=== PATIENT | female | born 2000 | race Caucasian/White ===

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

== ENCOUNTER 2022-08-22 02:08 | Inpatient (IN) | payer MEDICAID, OTHER ==
--- NOTE | 2022-08-22 02:33 | ED ---
Psych HPI - General Chief Complaint: Psychiatric Symptoms Stated Complaint: Suicidal Time Seen by Provider: 08/22/22 02:22 Source: patient Mode of arrival: ambulatory - History of Present Illness Initial Comments: This patient is 22-year-old woman presenting to have evaluation for depression and suicidal ideation. Patient states she has long-standing depression and was feeling worse tonight, considering harming herself. Patient states she did not act on that. The patient has been drinking some alcohol but denies any other ingestion. MD Complaint: suicidal ideation, feels depressed -: week(s) Associated Psychiatric Symptoms: depression, suicidal ideation History of same: Yes Quality: getting worse Improves With: none Worsens With: none Associated Symptoms: denies other symptoms - Related Data Home Medications Medication Instructions Recorded Confirmed Omeprazole [PriLOSEC] 20 mg PO HS 08/22/22 08/22/22 Previous Rx's Medication Instructions Recorded ARIPiprazole [Abilify] 5 mg PO HS 15 Days tab 08/24/22 Escitalopram [Lexapro] 10 mg PO DAILY 15 Days tab 08/24/22 Melatonin 3 mg PO HS 15 Days tab 08/24/22 Sulfamethox-Tmp 800-160Mg [Bactrim 1 each PO BID 6 Days tab 08/24/22 DS 800-160 mg] busPIRone HCl [Buspar] 10 mg PO BID 15 Days tab 08/24/22 Allergies Allergy/AdvReac Type Severity Reaction Status Date / Time No Known Allergies Allergy Verified 08/22/22 02:16 Review of Systems ROS Statement: Those systems with pertinent positive or pertinent negative responses have been documented in the HPI. ROS Other: All systems not noted in ROS Statement are negative. Constitutional: Denies: fever Respiratory: Denies: cough, dyspnea Cardiovascular: Denies: chest pain, palpitations, syncope Gastrointestinal: Denies: abdominal pain, vomiting, diarrhea Genitourinary: Denies: dysuria, hematuria, abnormal menses Musculoskeletal: Denies: back pain Skin: Denies: rash Neurological: Denies: headache, weakness, numbness Past Medical History Past Medical History: No Reported History History of Any Multi-Drug Resistant Organisms: None Reported Past Surgical History: No Surgical Hx Reported Past Psychological History: Anxiety, Depression Smoking Status: Vaper Past Alcohol Use History: Occasional Past Drug Use History: Marijuana General Exam Limitations: no limitations General appearance: alert, anxious Head exam: Present: atraumatic, normocephalic Eye exam: Present: normal appearance. Absent: scleral icterus, conjunctival injection Neck exam: Present: normal inspection Respiratory exam: Present: normal lung sounds bilaterally. Absent: respiratory distress, wheezes, rales, rhonchi, stridor Cardiovascular Exam: Present: regular rate, normal rhythm, normal heart sounds. Absent: systolic murmur, diastolic murmur, rubs, gallop GI/Abdominal exam: Present: soft. Absent: distended, tenderness, guarding, rebound, rigid Extremities exam: Present: normal inspection, normal capillary refill Neurological exam: Present: alert, oriented X3 Psychiatric exam: Present: depressed, suicidal ideation. Absent: anxious, flat affect, manic, homicidal ideation Skin exam: Present: warm, dry, intact, normal color. Absent: rash Course Vital Signs 08/22/22 08/22/22 08/22/22 02:13 07:22 13:22 Temperature 98.2 F 98.2 F Pulse Rate 126 H 77 Respiratory 20 18 18 Rate Blood Pressure 129/83 117/73 O2 Sat by Pulse 98 99 Oximetry Medical Decision Making - Lab Data Result diagrams: 08/23/22 06:21 08/23/22 06:21 Lab Results 08/22/22 Range/Units 13:19 Coronavirus (PCR) Not Detected (Not Detectd) Disposition Clinical Impression: Mood disorder, Alcohol intoxication Disposition: ADMITTED IP TO THIS HOSP Condition: Stable Is patient prescribed a controlled substance at d/c from ED?: No
[2022-08-22] MEDS ORDERED: MAG HYDROX/AL HYDROX/SIMETH 30 ML CUP PO PRN (14:20)
[2022-08-22] MEDS ORDERED: ACETAMINOPHEN TAB 325 MG TAB PO PRN (14:20)
[2022-08-22] MEDS ORDERED: OLANZapine 10 MG VIAL IM PRN (14:29)
[2022-08-22] MEDS ORDERED: OLANZapine 5 MG TAB PO PRN (14:31)
[2022-08-22] MEDS ORDERED: hydrOXYzine HCL 50 MG/ML 1 ML VIAL IM PRN (14:32)
[2022-08-22] MEDS: hydrOXYzine pamoate 25 MG CAP PO PRN (17:24)
[2022-08-22] MEDS: busPIRone HCl 5 MG TAB PO SCH (20:21)
[2022-08-22] MEDS: PANTOPRAZOLE 40 MG TABLET PO SCH (20:21)
[2022-08-22] MEDS: ARIPiprazole 5 MG TAB PO SCH (20:21)
[2022-08-22] MEDS: chlordiazePOXIDE 25 MG CAP PO SCH (20:29)
[2022-08-23 06:40] VITALS: RESP 16; TEMP 98.4
[2022-08-23 07:17] LABS: Basophils # (A) 0.1 k/uL (0-0.2); Basophils % (A) 1 %; Eosinophils % (A) 0 %; HCT 44.5 % (34.0-46.0); HGB 15.1 gm/dL (11.4-16.0); Lymphocytes # (A) 4.8 k/uL (1.0-4.8); Lymphocytes % (A) 51 %; MCH 30.3 pg (25.0-35.0); MCV 89.3 fL (80.0-100.0); Mean Platelet Volume 7.8; Monocytes # (A) 0.6 k/uL (0-1.0); Monocytes % (A) 6 %; Neutrophils # (A) 3.7 k/uL (1.3-7.7); Neutrophils % (A) 40 %; Platelet Count 322 k/uL (150-450); RBC 4.98 m/uL (3.80-5.40); RDW 12.8 % (11.5-15.5); WBC 9.4 k/uL (4.0-11.0)
[2022-08-23 07:20] LABS: ALT 15 U/L (4-34); AST 23 U/L (14-36); African American GFR (CKD) >90 (>60 ml/min/1.73 sqM); Albumin 4.8 g/dL (3.5-5.0); Alkaline Phosphatase 53 U/L (38-126); Anion Gap 13 mmol/L; Blood Urea Nitrogen 12 mg/dL (7-17); Calcium 9.6 mg/dL (8.4-10.2); Carbon Dioxide 26 mmol/L (22-30); Chloride 101 mmol/L (98-107); Glucose 90 mg/dL (74-99); Non-African American GFR(CKD) >90 (>60 ml/min/1.73 sqM); Potassium 4.2 mmol/L (3.5-5.1); Sodium 140 mmol/L (137-145); Total Bilirubin 0.8 mg/dL (0.2-1.3)
[2022-08-23] MEDS: chlordiazePOXIDE 25 MG CAP PO SCH (08:09)
[2022-08-23] MEDS: NICOTINE 14MG/24HR PATCH TRANSDERM SCH (08:09)
[2022-08-23] MEDS: busPIRone HCl 5 MG TAB PO SCH (08:10)
[2022-08-23] MEDS: ESCITALOPRAM 10 MG TAB PO SCH (08:10)
[2022-08-23] MEDS ORDERED: LIDOCAINE 2% GEL 30 ML TUBE TOPICAL ONE (10:22)
[2022-08-23 11:08] LABS: Chol/HDL Ratio 3.32 Ratio; LDL Cholesterol,Calculated 98.7 mg/dL (0.0-131.0)
[2022-08-23 11:28] LABS: Appearance,Urine Cloudy (Clear); Bacteria,Urine Rare /hpf; Bilirubin,Urine Negative (Negative); Blood,Urine Small (Negative); Color,Urine Yellow; Glucose,Urine (UA) Negative (Negative); Hyaline Casts,Urine 4 /lpf (0-2); Ketones,Urine Negative (Negative); Leukocyte Esterase,Urine Trace (Negative); Mucus,Urine Many /hpf; Nitrite,Urine Negative (Negative); Protein,Urine 1+ (Negative); RBC,Urine 1 /hpf (0-5); Specific Gravity,Urine 1.035 (1.001-1.035); Squamous Epithelial Cell,Urine 10 /hpf (0-4); Urobilinogen,Urine <2.0 mg/dL (<2.0); WBC,Urine 4 /hpf (0-5)
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
[2022-08-23] MEDS ORDERED: LIDOCAINE 2% URO-JET JELLY 5 ML KIT MISCELLANE ONE (13:15)
[2022-08-23] MEDS: hydrOXYzine pamoate 25 MG CAP PO PRN ×2 (13:49→20:05)
--- NOTE | 2022-08-23 17:47 | P.HPIM ---
History of Present Illness H&P Date: 08/23/22 This is a pleasant 22-year-old female who was admitted to inpatient psych for suicidal thought ideation. Patient denies past medical history. Patient is concerned about her lacerations on her right upper thigh. Patient inflicted self-harm with a razor about a week ago. Today the lacerations have become more painful and inflamed. Patient denies fevers or chills. Patient further denies chest pain, shortness breath, nausea, vomiting, constipation, diarrhea, or abdominal pain. Review of Systems A 14 point review of systems was assessed patient was only positive for those discussed in HPI Past Medical History Past Medical History: No Reported History History of Any Multi-Drug Resistant Organisms: None Reported Past Surgical History: No Surgical Hx Reported Smoking Status: Vaper Medications and Allergies Home Medications Medication Instructions Recorded Confirmed Type ARIPiprazole [Abilify] 5 mg PO HS 08/22/22 08/22/22 History DULoxetine HCL [Cymbalta] 20 mg PO DAILY 08/22/22 08/22/22 History Escitalopram Oxalate [Lexapro] 10 mg PO DAILY 08/22/22 08/22/22 History Omeprazole [PriLOSEC] 20 mg PO HS 08/22/22 08/22/22 History busPIRone HCl [Buspar] 5 mg PO BID 08/22/22 08/22/22 History Allergies Allergy/AdvReac Type Severity Reaction Status Date / Time No Known Allergies Allergy Verified 08/22/22 02:16 Physical Exam Osteopathic Statement: *. No significant issues noted on an osteopathic str uctural exam other than those noted in the History and Physical/Consult. Vitals: Vital Signs Temp Pulse Resp BP 08/23/22 06:20 98.4 F 86 16 134/83 General: [non toxic], [no distress], [appears at stated age] Derm: [warm], [dry] multiple linear lacerations right upper thigh with increased erythema and edema negative for drainage Head: [atraumatic], [normocephalic], [symmetric] Eyes: [EOMI], [no lid lag], [anicteric sclera] Mouth: [no lip lesion], [mucus membranes moist] Cardiovascular: [S1S2 reg], [no murmur], [positive posterior tibial pulse bilateral], Lungs: [CTA bilateral], [no rhonchi, no rales] , [no accessory muscle use] Abdominal: [soft], [ nontender to palpation], [no guarding], [no appreciable organomegaly] Ext: [no gross muscle atrophy], [no edema], [no contractures] Neuro: [ CN II-XI grossly intact], [no focal neuro deficits] Psych: [Alert], [oriented], [appropriate affect] Results CBC & Chem 7: 08/23/22 06:21 08/23/22 06:21 Labs: Abnormal Lab Results - Last 24 Hours (Table) 08/23/22 Range/Units 10:49 Urine Appearance Cloudy H (Clear) Urine Protein 1+ H (Negative) Urine Blood Small H (Negative) Ur Leukocyte Esterase Trace H (Negative) Ur Squamous Epith Cells 10 H (0-4) /hpf Urine Bacteria Rare H (None) /hpf Hyaline Casts 4 H (0-2) /lpf Urine Mucus Many H (None) /hpf Thrombosis Risk Factor Assmnt - DVT/VTE Prophylaxis DVT/VTE Prophylaxis: Low risk, early ambulation encouraged Assessment and Plan Assessment: 1. Multiple lacerations due to self-harm right upper thigh concern for cellulitis Bactrim DS twice a day 7 days Tylenol when necessary pain 2. Suicidal thought ideation Followed by psychiatry medications per psych Greater than 35 minutes spent coordinating care, counseling, and documenting Time with Patient: Greater than 30
--- NOTE | 2022-08-23 17:50 | P.CONS ---
History of Present Illness - Reason for Consult Consult date: 08/23/22 lacerations - Chief Complaint lacerations on thigh - History of Present Illness This is a pleasant 22-year-old female who was admitted to inpatient psych for suicidal thought ideation. Patient denies past medical history. Patient is concerned about her lacerations on her right upper thigh. Patient inflicted self-harm with a razor about a week ago. Today the lacerations have become more painful and inflamed. Patient denies fevers or chills. Patient further denies chest pain, shortness breath, nausea, vomiting, constipation, diarrhea, or abdominal pain. Review of Systems A 14 point review of systems was assessed patient was only positive for those discussed in HPI Past Medical History Past Medical History: No Reported History History of Any Multi-Drug Resistant Organisms: None Reported Past Surgical History: No Surgical Hx Reported Smoking Status: Vaper Medications and Allergies Home Medications Medication Instructions Recorded Confirmed Type ARIPiprazole [Abilify] 5 mg PO HS 08/22/22 08/22/22 History DULoxetine HCL [Cymbalta] 20 mg PO DAILY 08/22/22 08/22/22 History Escitalopram Oxalate [Lexapro] 10 mg PO DAILY 08/22/22 08/22/22 History Omeprazole [PriLOSEC] 20 mg PO HS 08/22/22 08/22/22 History busPIRone HCl [Buspar] 5 mg PO BID 08/22/22 08/22/22 History Allergies Allergy/AdvReac Type Severity Reaction Status Date / Time No Known Allergies Allergy Verified 08/22/22 02:16 Physical Exam Osteopathic Statement: *. No significant issues noted on an osteopathic structural exam other than those noted in the History and Physical/Consult. Vitals: Vital Signs Temp Pulse Resp BP 08/23/22 06:20 98.4 F 86 16 134/83 General: [non toxic], [no distress], [appears at stated age] Derm: [warm], [dry] multiple linear lacerations right upper thigh with increased erythema and edema negative for drainage Head: [atraumatic], [normocephalic], [symmetric] Eyes: [EOMI], [no lid lag], [anicteric sclera] Mouth: [no lip lesion], [mucus membranes moist] Cardiovascular: [S1S2 reg], [no murmur], [positive posterior tibial pulse bilat eral], Lungs: [CTA bilateral], [no rhonchi, no rales] , [no accessory muscle use] Abdominal: [soft], [ nontender to palpation], [no guarding], [no appreciable organomegaly] Ext: [no gross muscle atrophy], [no edema], [no contractures] Neuro: [ CN II-XI grossly intact], [no focal neuro deficits] Psych: [Alert], [oriented], [appropriate affect] Results CBC & Chem 7: 08/23/22 06:21 08/23/22 06:21 Labs: Abnormal Lab Results - Last 24 Hours (Table) 08/23/22 Range/Units 10:49 Urine Appearance Cloudy H (Clear) Urine Protein 1+ H (Negative) Urine Blood Small H (Negative) Ur Leukocyte Esterase Trace H (Negative) Ur Squamous Epith Cells 10 H (0-4) /hpf Urine Bacteria Rare H (None) /hpf Hyaline Casts 4 H (0-2) /lpf Urine Mucus Many H (None) /hpf Assessment and Plan Assessment: 1. Multiple lacerations due to self-harm right upper thigh concern for cellulitis Bactrim DS twice a day 7 days Tylenol when necessary pain 2. Suicidal thought ideation Followed by psychiatry medications per psych Greater than 35 minutes spent coordinating care, counseling, and documenting Thank you for the consult he have any questions please do not hesitate to contact [facility]
[2022-08-23 19:35] LABS: Urine Alcohol Negative (Negative); Urine Barbiturate Negative (Negative); Urine Cocaine Negative (Negative); Urine Methadone Negative (Negative); Urine Opiates Negative (Negative); Urine Phencyclidine Negative (Negative)
[2022-08-23] MEDS: busPIRone HCl 10 MG TAB PO SCH (20:05)
[2022-08-23] MEDS: SULFAMETHOX-TMP 800-160MG 1 EACH TAB PO SCH (20:05)
[2022-08-23] MEDS: ARIPiprazole 5 MG TAB PO SCH (20:05)
[2022-08-23] MEDS: PANTOPRAZOLE 40 MG TABLET PO SCH (20:05)
[2022-08-23] MEDS: NICOTINE GUM (POLACRILEX) 2 MG GUM BUCCAL PRN (22:26)
[2022-08-24] MEDS ORDERED: MELATONIN 3 MG TABLET PO SCH (00:45)
[2022-08-24] MEDS: NICOTINE GUM (POLACRILEX) 2 MG GUM BUCCAL PRN ×2 (02:35→08:53)
[2022-08-24] MEDS: hydrOXYzine pamoate 25 MG CAP PO PRN ×2 (02:36→11:03)
[2022-08-24 07:02] VITALS: BP 133/86; PULSE 91
[2022-08-24] MEDS: NICOTINE 14MG/24HR PATCH TRANSDERM SCH (08:46)
[2022-08-24] MEDS: ESCITALOPRAM 10 MG TAB PO SCH (08:47)
[2022-08-24] MEDS: SULFAMETHOX-TMP 800-160MG 1 EACH TAB PO SCH (08:47)
[2022-08-24] MEDS: busPIRone HCl 10 MG TAB PO SCH (08:47)
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
== END 2022-08-24 13:14 | disposition home or self-care (01) | DRG 885 ==
LOC: EC 02:08 → 3MHU 14:15
PROVIDERS: ADMIT Psychiatry & Neurology Psychiatry; ATTEND Psychiatry & Neurology Psychiatry
DX: F33.2 Major depressive disorder, recurrent severe without psychotic features (principal); R45.851 Suicidal ideations; F60.3 Borderline personality disorder; F43.10 Post-traumatic stress disorder, unspecified; F10.129 Alcohol abuse with intoxication, unspecified; F12.90 Cannabis use, unspecified, uncomplicated; F60.89 Other specific personality disorders; S71.111A Laceration without foreign body, right thigh, initial encounter; Z62.810 Personal history of physical and sexual abuse in childhood; Z79.899 Other long term (current) drug therapy; Z91.52 Personal history of nonsuicidal self-harm; Z20.822 Contact with and (suspected) exposure to COVID-19
CPT/HCPCS: 80053; 80061; 80306; 81001; 81025; 82075; 83036; 84443; 85025; 87635; 99285

== ENCOUNTER 2022-09-01 11:31 | Emergency (ER) | payer OTHER ==
[2022-09-01 11:44] VITALS: TEMP 98.4
--- NOTE | 2022-09-01 12:24 | ED ---
General Adult HPI - General Chief complaint: Psychiatric Symptoms Stated complaint: Mental Health Time Seen by Provider: 09/01/22 11:52 Source: patient Mode of arrival: ambulatory Limitations: no limitations - History of Present Illness Initial comments: Dictation was produced using [employer] dictation software. please excuse any grammatical, word or spelling errors. Chief Complaint: 22-year-old female presents emergency department for 1 week of suicidal ideation History of Present Illness: Patient is a 22-year-old female she presents to the [facility] with suicidal ideation. Patient states she's been feeling suicidal for the last 7 days. Patient is a history of psychiatric disease. She takes multiple psychiatric medications. Patient denies any homicidal ideation. No visual auditory hallucinations. Denies any medical complaints. The ROS documented in this emergency department record has been reviewed and confirmed by me. Those systems with pertinent positive or negative responses have been documented in the HPI. All other systems are other negative and/or noncontributory. PHYSICAL EXAM: General Impression: Alert and oriented x3, not in acute distress HEENT: Normocephalic atraumatic, extra-ocular movements intact, pupils equal and reactive to light bilaterally, mucous membranes moist. Cardiovascular: Heart regular rate and rhythm Chest: Able to complete full sentences, no retractions, no tachypnea Musculoskeletal: no peripheral edema Motor: no focal deficits noted Neurological: CN II-XII grossly intact, no focal motor or sensory deficits noted Skin: Intact with no visualized rashes Psych: Normal affect and mood ED course: 22-year-old female presents to the emergency Department for suicidal ideation. As upon arrival are within acceptable limits. Physical examination is benign. Cleared for EPS evaluation. Patient evaluated by emergency psych services recommended discharge with outpatient follow-up and referrals. - Related Data Home Medications Medication Instructions Recorded Confirmed Omeprazole [PriLOSEC] 20 mg PO HS 08/22/22 08/22/22 Previous Rx's Medication Instructions Recorded ARIPiprazole [Abilify] 5 mg PO HS 15 Days tab 08/24/22 Escitalopram [Lexapro] 10 mg PO DAILY 15 Days tab 08/24/22 Melatonin 3 mg PO HS 15 Days tab 08/24/22 Sulfamethox-Tmp 800-160Mg [Bactrim 1 each PO BID 6 Days tab 08/24/22 DS 800-160 mg] busPIRone HCl [Buspar] 10 mg PO BID 15 Days tab 08/24/22 Allergies Allergy/AdvReac Type Severity Reaction Status Date / Time No Known Allergies Allergy Verified 09/01/22 11:44 Review of Systems ROS Statement: Those systems with pertinent positive or pertinent negative responses have been documented in the HPI. ROS Other: All systems not noted in ROS Statement are negative. Past Medical History Past Medical History: No Reported History History of Any Multi-Drug Resistant Organisms: None Reported Past Surgical History: No Surgical Hx Reported Past Psychological History: Anxiety, Depression Smoking Status: Vaper Past Alcohol Use History: Occasional Past Drug Use History: Marijuana General Exam Limitations: no limitations Course Vital Signs 09/01/22 11:42 Temperature 98.4 F Pulse Rate 91 Respiratory 16 Rate Blood Pressure 122/82 O2 Sat by Pulse 100 Oximetry Disposition Clinical Impression: Suicidal ideation Disposition: HOME SELF-CARE Condition: Good Instructions (If sedation given, give patient instructions): Help Prevent Suicide (ED) Is patient prescribed a controlled substance at d/c from ED?: No Referrals: Bladimir Min MD [Primary Care Provider] - 1-2 days Time of Disposition: 15:06
[2022-09-01 15:55] VITALS: BP 124/81; PULSE 92; RESP 18
== END 2022-09-01 15:31 | disposition home or self-care (01) ==
LOC: SUPCPDRO 11:31 → EC 11:31
DX: R45.851 Suicidal ideations (principal); F32.A Depression, unspecified; F41.9 Anxiety disorder, unspecified; F17.290 Nicotine dependence, other tobacco product, uncomplicated; Z79.899 Other long term (current) drug therapy; Z79.811 Long term (current) use of aromatase inhibitors; Z79.83 Long term (current) use of bisphosphonates
CPT/HCPCS: 82075; 99284

== ENCOUNTER → 2023-07-24 | Outpatient (CLI) | payer SELFPAY ==
[2023-07-24 11:10] LABS: Basophils # (A) 0.06 X 10*3/uL (0.00-0.10); Basophils % (A) 0.9 %; Eosinophils # (A) 0.02 X 10*3/uL (0.04-0.35); Eosinophils % (A) 0.3 %; HCT 44.6 % (37.2-46.3); HGB 14.8 d/dL (12.0-15.0); Lymphocytes # (A) 2.76 X 10*3/uL (0.90-5.00); Lymphocytes % (A) 40.2 %; MCH 30.5 pg (27.0-32.0); MCHC 33.2 d/dL (32.0-37.0); Mean Platelet Volume 10.2 FL (9.5-12.2); Monocytes # (A) 0.42 X 10*3/uL (0.20-1.00); Monocytes % (A) 6.1 %; NRBC Per 100 WBC 0 X 10*3/uL (0.00-0.01); Neutrophils # (A) 3.56 X 10*3/uL (1.80-7.70); Neutrophils % (A) 51.9 %; Platelet Count 292 X 10*3/uL (140-440); RBC 4.85 X 10*6/uL (4.10-5.20); RDW 12.3 % (11.5-14.5); WBC 6.86 X 10*3/uL (4.50-10.00)
[2023-07-24 11:30] LABS: ALT 14 U/L (8-44); AST 18 U/L (13-35); Albumin/Globulin Ratio 2.08 Ratio (1.60-3.17); Alkaline Phosphatase 52 U/L (41-126); BUN/Creat Ratio 13.75 Ratio (12.00-20.00); Calcium 9.9 mg/dL (8.7-10.3); Carbon Dioxide 25.9 mmol/L (21.6-31.8); Chloride 105 mmol/L (96-109); Globulin 2.4 d/dL (1.6-3.3); Glucose 64 mg/dL (70-110); HCG,Quantitative Serum <3.0 mIU/mL (0.0-6.0); Potassium 4.2 mmol/L (3.5-5.5); Sodium 143 mmol/L (135-145); Total Bilirubin 0.3 mg/dL (0.3-1.2); Total Protein 7.4 d/dL (6.2-8.2)
== END | disposition home or self-care (01) ==
LOC: LABWHC1 07:34
PROVIDERS: ATTEND Family Medicine
DX: N93.9 Abnormal uterine and vaginal bleeding, unspecified (principal)
CPT/HCPCS: 36415; 80053; 84702; 85025

== ENCOUNTER 2025-04-20 15:47 | Emergency (ER) | payer SELFPAY ==
--- NOTE | 2025-04-20 16:36 | ED ---
General Adult HPI - General Chief complaint: Nausea/Vomiting/Diarrhea Stated complaint: near syncope, vomiting Time Seen by Provider: 04/20/25 16:14 Source: patient, RN notes reviewed Mode of arrival: ambulatory Limitations: no limitations - History of Present Illness Initial comments: 24-year-old female presents to the emergency department for nausea and vomiting. Patient reports that symptoms started on Sunday. She notes that since then she has been very nauseous. She went to [facility] around 430 this morning and was given IV fluids and Zofran. She notes that she did have some relief temporarily. She was written a prescription for p.o. Zofran but she did not pick this up. Patient also endorses diarrhea. Denies abdominal pain. Denies any fever. Denies any urinary symptoms. - Related Data Home Medications Medication Instructions Recorded Confirmed Omeprazole [PriLOSEC] 20 mg PO HS 08/22/22 08/22/22 Previous Rx's Medication Instructions Recorded ARIPiprazole [Abilify] 5 mg PO HS 15 Days tab 08/24/22 Escitalopram [Lexapro] 10 mg PO DAILY 15 Days tab 08/24/22 Melatonin 3 mg PO HS 15 Days tab 08/24/22 Sulfamethox-Tmp 800-160Mg [Bactrim 1 each PO BID 6 Days tab 08/24/22 DS 800-160 mg] busPIRone HCl [Buspar] 10 mg PO BID 15 Days tab 08/24/22 Allergies Allergy/AdvReac Type Severity Reaction Status Date / Time No Known Allergies Allergy Verified 04/20/25 15:57 Review of Systems ROS Statement: Those systems with pertinent positive or pertinent negative responses have been documented in the HPI. ROS Other: All systems not noted in ROS Statement are negative. Past Medical History Past Medical History: No Reported History Additional Past Medical History / Comment(s): GERD as child History of Any Multi-Drug Resistant Organisms: None Reported Past Surgical History: No Surgical Hx Reported Past Psychological History: Anxiety, Depression Smoking Status: Vaper Past Alcohol Use History: Occasional Past Drug Use History: Marijuana General Exam Limitations: no limitations General appearance: alert, in no apparent distress Head exam: Present: atraumatic, normocephalic, normal inspection Eye exam: Present: normal appearance, PERRL, EOMI. Absent: scleral icterus, conjunctival injection, periorbital swelling Respiratory exam: Present: normal lung sounds bilaterally. Absent: respiratory distress, wheezes, rales, rhonchi, stridor Cardiovascular Exam: Present: regular rate, normal rhythm, normal heart sounds. Absent: systolic murmur, diastolic murmur, rubs, gallop, clicks GI/Abdominal exam: Present: soft, normal bowel sounds. Absent: distended, tenderness, guarding, rebound, rigid Extremities exam: Present: normal inspection, full ROM, normal capillary refill. Absent: tenderness, pedal edema, joint swelling, calf tenderness Back exam: Present: normal inspection Neurological exam: Present: alert, oriented X3 Psychiatric exam: Present: normal affect, normal mood Skin exam: Present: warm, dry, intact, normal color. Absent: rash Course Vital Signs 04/20/25 15:53 Temperature 97.9 F Pulse Rate 71 Respiratory 15 Rate Blood Pressure 124/73 O2 Sat by Pulse 99 Oximetry Medical Decision Making - Medical Decision Making Was pt. sent in by a medical professional or institution (JASON Zhao, [employer], urgent care, hospital, or detention...) When possible be specific @ -[No] Did you speak to anyone other than the patient for history (EMS, parent, family, police, friend...)? What history was obtained from this source @ -[No] Did you review nursing and triage notes (agree or disagree)? Why? @ -[I reviewed and agree with nursing and triage notes] Were old charts reviewed (outside hosp., previous admission, EMS record, old EKG, old radiological studies, urgent care reports/EKG's, detention records)? Report findings @ -[No old charts were reviewed] Differential Diagnosis (chest pain, altered mental status, abdominal pain women, abdominal pain men, vaginal bleeding, weakness, fever, dyspnea, syncope, headache, dizziness, GI bleed, back pain, seizure, CVA, palpatations, mental health, musculoskeletal)? @ -[not applicable] EKG interpreted by me (3pts min.). @ -[As above] X-rays interpreted by me (1pt min.). @ -[None done] CT interpreted by me (1pt min.). @ -[None done] U/S interpreted by me (1pt. min.). @ -[None done] What testing was considered but not performed or refused? (CT, X-rays, U/S, labs)? Why? @ -[None] What meds were considered but not given or refused? Why? @ -[None] Did you discuss the management of the patient with other professionals (professionals i.e. , PA, [employer], lab, RT, psych nurse, rn social work, environmental quality analyst, teacher, vessel traffic officer, ed case manager)? Give summary @ -[No] Was smoking cessation discussed for >3mins.? @ -[No] Was critical care preformed (if so, how long)? @ -[No] Were there social determinants of health that impacted care today? How? (Homelessness, low income, unemployed, alcoholism, drug addiction, transportation, low edu. Level, literacy, decrease access to med. care, custodial, rehab)? @ -[No] Was there de-escalation of care discussed even if they declined (Discuss DNR or withdrawal of care, Hospice)? DNR status @ -[No] What co-morbidities impacted this encounter? (DM, HTN, Smoking, COPD, CAD, Cancer, CVA, ARF, Chemo, Hep., AIDS, mental health diagnosis, sleep apnea, morbid obesity)? @ -[None] Was patient admitted / discharged? Hospital course, mention meds given and route, prescriptions, significant lab abnormalities, going to OR and other pertinent info. @ -[hospital course] Undiagnosed new problem with uncertain prognosis? @ -[No] Drug Therapy requiring intensive monitoring for toxicity (Heparin, Nitro, Insulin, Cardizem)? @ -[No] Were any procedures done? @ -[No] Diagnosis/symptom? @ -[default] Acute, or Chronic, or Acute on Chronic? @ -[default] Uncomplicated (without systemic symptoms) or Complicated (systemic symptoms)? @ -[default] Side effects of treatment? @ -[No] Exacerbation, Progression, or Severe Exacerbation? @ -[No] Poses a threat to life or bodily function? How? (Chest pain, [place], [place], pneumonia, PE, COPD, DKA, ARF, appy, cholecystitis, CVA, Diverticulitis, Homicidal, Suicidal, threat to staff... and all critical care pts) @ -[No] - Lab Data Result diagrams: 04/20/25 16:42 04/20/25 16:42 Lab Results 04/20/25 04/20/25 04/20/25 Range/Units 16:42 16:42 16:42 WBC 9.26 (4.50-10.00) 10*3/uL RBC 4.81 (4.10-5.20) 10*6/uL Hgb 15.0 (12.0-15.0) g/dL Hct 42.4 (37.2-46.3) % MCV 88.1 (80.0-97.0) fL MCH 31.2 (27.0-32.0) pg MCHC 35.4 (32.0-37.0) g/dL Plt Count 381 (140-440) 10*3/uL MPV 9.8 (9.5-12.2) fL Immature Gran % (Auto) 0.4 % Neutrophils % 68.7 % Lymphocytes % 24.2 % Monocytes % 6.0 % Eosinophils % 0.1 % Basophils % 0.6 % Immature Gran # 0.04 (0.00-0.04) 10*3/uL Neutrophils # 6.35 (1.80-7.70) 10*3/uL Lymphocytes # 2.24 (0.90-5.00) 10*3/uL Monocytes # 0.56 (0.20-1.00) 10*3/uL Eosinophils # 0.01 L (0.04-0.35) 10*3/uL Basophils # 0.06 (0.00-0.10) 10*3/uL Sodium (137-145) mmol/L Potassium (3.5-5.1) mmol/L Chloride (98-107) mmol/L Carbon Dioxide (22-30) mmol/L Anion Gap mmol/L BUN (7-17) mg/dL Creatinine (0.52-1.04) mg/dL Est GFR (CKD-EPI)AfAm (>60 ml/min/1.73 sqM) Est GFR (CKD-EPI)NonAf (>60 ml/min/1.73 sqM) Glucose (74-99) mg/dL Calcium (8.4-10.2) mg/dL Total Bilirubin (0.2-1.3) mg/dL AST (14-36) U/L ALT (4-34) U/L Alkaline Phosphatase (38-126) U/L Total Protein (6.3-8.2) g/dL Albumin (3.5-5.0) g/dL Amylase (30-110) U/L Lipase (23-300) U/L Urine Color Yellow Urine Appearance Cloudy H (Clear) Urine pH 6.5 (5.0-8.0) Ur Specific [place] 1.038 H (1.001-1.035) Urine Protein 1+ H (Negative) Urine Glucose (UA) Negative (Negative) Urine Ketones 4+ H (Negative) Urine Blood Moderate H (Negative) Urine Nitrite Negative (Negative) Urine Bilirubin 1+ H (Negative) Urine Urobilinogen 3.0 (<2.0) mg/dL Ur Leukocyte Esterase Negative (Negative) Urine RBC 19 H (0-5) /hpf Urine WBC 4 (0-5) /hpf Ur Squamous Epith Cells 6 H (0-4) /hpf Urine Mucus Many H (None) /hpf Urine HCG, Qual Not Detected (Not Detectd) 04/20/25 Range/Units 16:42 WBC (4.50-10.00) 10*3/uL RBC (4.10-5.20) 10*6/uL Hgb (12.0-15.0) g/dL Hct (37.2-46.3) % MCV (80.0-97.0) fL MCH (27.0-32.0) pg MCHC (32.0-37.0) g/dL Plt Count (140-440) 10*3/uL MPV (9.5-12.2) fL Immature Gran % (Auto) % Neutrophils % % Lymphocytes % % Monocytes % % Eosinophils % % Basophils % % Immature Gran # (0.00-0.04) 10*3/uL Neutrophils # (1.80-7.70) 10*3/uL Lymphocytes # (0.90-5.00) 10*3/uL Monocytes # (0.20-1.00) 10*3/uL Eosinophils # (0.04-0.35) 10*3/uL Basophils # (0.00-0.10) 10*3/uL Sodium 140 (137-145) mmol/L Potassium 3.5 (3.5-5.1) mmol/L Chloride 105 (98-107) mmol/L Carbon Dioxide 22 (22-30) mmol/L Anion Gap 13 mmol/L BUN 11 (7-17) mg/dL Creatinine 0.72 (0.52-1.04) mg/dL Est GFR (CKD-EPI)AfAm >90 (>60 ml/min/1.73 sqM) Est GFR (CKD-EPI)NonAf >90 (>60 ml/min/1.73 sqM) Glucose 123 H (74-99) mg/dL Calcium 9.8 (8.4-10.2) mg/dL Total Bilirubin 0.7 (0.2-1.3) mg/dL AST 22 (14-36) U/L ALT 22 (4-34) U/L Alkaline Phosphatase 64 (38-126) U/L Total Protein 8.0 (6.3-8.2) g/dL Albumin 5.0 (3.5-5.0) g/dL Amylase 52 (30-110) U/L Lipase 70 (23-300) U/L Urine Color Urine Appearance (Clear) Urine pH (5.0-8.0) Ur Specific [place] (1.001-1.035) Urine Protein (Negative) Urine Glucose (UA) (Negative) Urine Ketones (Negative) Urine Blood (Negative) Urine Nitrite (Negative) Urine Bilirubin (Negative) Urine Urobilinogen (<2.0) mg/dL Ur Leukocyte Esterase (Negative) Urine RBC (0-5) /hpf Urine WBC (0-5) /hpf Ur Squamous Epith Cells (0-4) /hpf Urine Mucus (None) /hpf Urine HCG, Qual (Not Detectd) Disposition Clinical Impression: Dehydration, Nausea and vomiting Disposition: HOME SELF-CARE Condition: Stable Instructions (If sedation given, give patient instructions): Acute Nausea and Vomiting (ED) Additional Instructions: Increase your fluid hydration. Utilize the Zofran as needed for nausea. Please follow-up with your doctor. Return to the emergency department for new or worsening symptoms. Is patient prescribed a controlled substance at d/c from ED?: No Referrals: Gustavo Ardon MD [Primary Care Provider] - 1-2 days
[2025-04-20] MEDS: SODIUM CHLORIDE 0.9% 1,000 ML IV ONE ×2 (16:46→17:51)
[2025-04-20] MEDS: PROCHLORPERAZINE INJ 10 MG/2 ML VIAL IVP STA (16:47)
[2025-04-20] MEDS: diphenhydrAMINE 50 MG/ML 1 ML VIAL IVP STA (16:47)
[2025-04-20 16:56] LABS: Basophils # (A) 0.06 10*3/uL (0.00-0.10); Basophils % (A) 0.6 %; Eosinophils # (A) 0.01 10*3/uL (0.04-0.35); Eosinophils % (A) 0.1 %; HCT 42.4 % (37.2-46.3); Lymphocytes # (A) 2.24 10*3/uL (0.90-5.00); Lymphocytes % (A) 24.2 %; MCH 31.2 pg (27.0-32.0); MCHC 35.4 g/dL (32.0-37.0); MCV 88.1 fL (80.0-97.0); Mean Platelet Volume 9.8 fL (9.5-12.2); Monocytes # (A) 0.56 10*3/uL (0.20-1.00); Neutrophils # (A) 6.35 10*3/uL (1.80-7.70); Neutrophils % (A) 68.7 %; Platelet Count 381 10*3/uL (140-440); RBC 4.81 10*6/uL (4.10-5.20); RDW 12.7 % (11.5-14.5); WBC 9.26 10*3/uL (4.50-10.00)
[2025-04-20 17:11] LABS: Appearance,Urine Cloudy (Clear); Bilirubin,Urine 1+ (Negative); Blood,Urine Moderate (Negative); Color,Urine Yellow; Glucose,Urine (UA) Negative (Negative); Ketones,Urine 4+ (Negative); Leukocyte Esterase,Urine Negative (Negative); Mucus,Urine Many /hpf; Nitrite,Urine Negative (Negative); PH, Urine 6.5 (5.0-8.0); Protein,Urine 1+ (Negative); RBC,Urine 19 /hpf (0-5); Specific Gravity,Urine 1.038 (1.001-1.035); Squamous Epithelial Cell,Urine 6 /hpf (0-4); WBC,Urine 4 /hpf (0-5)
[2025-04-20 17:12] LABS: ALT 22 U/L (4-34); AST 22 U/L (14-36); African American GFR (CKD) >90 (>60 ml/min/1.73 sqM); Alkaline Phosphatase 64 U/L (38-126); Amylase 52 U/L (30-110); Anion Gap 13 mmol/L; Blood Urea Nitrogen 11 mg/dL (7-17); Calcium 9.8 mg/dL (8.4-10.2); Carbon Dioxide 22 mmol/L (22-30); Chloride 105 mmol/L (98-107); Glucose 123 mg/dL (74-99); Lipase 70 U/L (23-300); Non-African American GFR(CKD) >90 (>60 ml/min/1.73 sqM); Potassium 3.5 mmol/L (3.5-5.1); Sodium 140 mmol/L (137-145); Total Bilirubin 0.7 mg/dL (0.2-1.3)
[2025-04-20] MEDS: ONDANSETRON 4 MG/2 ML VIAL IVP STA (17:51)
[2025-04-20] MEDS: ONDANSETRON 4 MG ODT STARTER PACK 2 TAB BTL PO STA (18:53)
[2025-04-20 19:02] VITALS: BP 138/87; PULSE 81; RESP 18; TEMP 98.3
== END 2025-04-20 19:03 | disposition home or self-care (01) ==
LOC: EC 15:47
DX: E86.0 Dehydration (principal); R11.2 Nausea with vomiting, unspecified; F17.290 Nicotine dependence, other tobacco product, uncomplicated
CPT/HCPCS: 36415; 80053; 82150; 83690; 85025; 81001; 81025; 99284; 96374; 96375 ×2; 96361 ×2; J1200; J0780; J2405; S0119

== ENCOUNTER 2025-04-21 16:04 | Emergency (ER) | payer SELFPAY ==
[2025-04-21 16:10] VITALS: RESP 16
--- NOTE | 2025-04-21 16:53 | ED ---
Nausea/Vomiting/Diarrhea HPI - General Chief complaint: Nausea/Vomiting/Diarrhea Stated complaint: Recheck-Nausea Time Seen by Provider: 04/21/25 16:53 Source: patient, RN notes reviewed Mode of arrival: ambulatory Limitations: no limitations - History of Present Illness Initial comments: 24-year-old female presenting for nausea/vomiting/diarrhea x 3 days. Reports symptoms started Sunday and describes more than 10 episodes of vomiting at symptom onset. States she has not vomited in the past 24 hours however continues to experience nausea. Also reports she has had several episodes of diarrhea over the past day. Denies abdominal pain, fever, urinary symptoms. She was seen yesterday at both [facility] and [facility] ER who prescribed her Zofran and discharged her. No significant medical conditions. Denies previous abdominal surgeries. Denies blood in stool. She is able to tolerate small amounts of orals. Patient states she has intermittent vaginal spotting since she stopped her control. - Related Data Home Medications Medication Instructions Recorded Confirmed Omeprazole [PriLOSEC] 20 mg PO HS 08/22/22 08/22/22 Previous Rx's Medication Instructions Recorded ARIPiprazole [Abilify] 5 mg PO HS 15 Days tab 08/24/22 Escitalopram [Lexapro] 10 mg PO DAILY 15 Days tab 08/24/22 Melatonin 3 mg PO HS 15 Days tab 08/24/22 Sulfamethox-Tmp 800-160Mg [Bactrim 1 each PO BID 6 Days tab 08/24/22 DS 800-160 mg] busPIRone HCl [Buspar] 10 mg PO BID 15 Days tab 08/24/22 Allergies Allergy/AdvReac Type Severity Reaction Status Date / Time No Known Allergies Allergy Verified 04/20/25 15:57 Review of Systems ROS Statement: Those systems with pertinent positive or pertinent negative responses have been documented in the HPI. ROS Other: All systems not noted in ROS Statement are negative. Past Medical History Past Medical History: GERD/Reflux Additional Past Medical History / Comment(s): GERD as child History of Any Multi-Drug Resistant Organisms: None Reported Past Surgical History: No Surgical Hx Reported Past Psychological History: Anxiety, Depression Smoking Status: Vaper Past Alcohol Use History: Occasional Past Drug Use History: Marijuana General Exam Limitations: no limitations General appearance: alert, in no apparent distress Head exam: Present: atraumatic, normocephalic, normal inspection ENT exam: Present: normal exam, mucous membranes moist Respiratory exam: Present: normal lung sounds bilaterally. Absent: respiratory distress, wheezes, rales, rhonchi, stridor Cardiovascular Exam: Present: regular rate, normal rhythm, normal heart sounds. Absent: systolic murmur, diastolic murmur, rubs, gallop, clicks GI/Abdominal exam: Present: soft, normal bowel sounds. Absent: distended, tenderness, guarding, rebound, rigid Back exam: Absent: CVA tenderness (R), CVA tenderness (L) Neurological exam: Present: alert, oriented X3 Psychiatric exam: Present: normal affect, normal mood Skin exam: Present: warm, dry, intact, normal color. Absent: rash Course Vital Signs 04/21/25 16:06 Temperature 98.5 F Pulse Rate 90 Respiratory 16 Rate Blood Pressure 131/79 O2 Sat by Pulse 98 Oximetry Medical Decision Making - Medical Decision Making Was pt. sent in by a medical professional or institution (, PA, CHIEF CUSTOMER OFFICER, urgent care, hospital, or residential...) When possible be specific @ -No Did you speak to anyone other than the patient for history (EMS, parent, family, police, friend...)? What history was obtained from this source @ -No Did you review nursing and triage notes (agree or disagree)? Why? @ -I reviewed and agree with nursing and triage notes Were old charts reviewed (outside hosp., previous admission, EMS record, old EKG, old radiological studies, urgent care reports/EKG's, residential records)? Report findings @ -Reviewed ER chart from yesterday including negative lab work Differential Diagnosis (chest pain, altered mental status, abdominal pain women, abdominal pain men, vaginal bleeding, weakness, fever, dyspnea, syncope, headache, dizziness, GI bleed, back pain, seizure, CVA, palpatations, mental health, musculoskeletal)? @ -Differential Abdominal Pain Women: Appendicitis, Cholecystitis, diverticulosis, ischemic bowel, pancreatitis, hepatitis, UTI, gastroenteritis, AAA, incarcerated hernia, bowel obstruction, constipation, inflammatory bowel, hepatitis, peptic ulcer disease, splenic infarction, perforated viscus, vulvitis, ovarian torsion, PID, kidney stone, placenta abruption, this is not meant to be an all-inclusive list EKG interpreted by me (3pts min.). @ -None X-rays interpreted by me (1pt min.). @ -None done CT interpreted by me (1pt min.). @ -None done U/S interpreted by me (1pt. min.). @ -None done What testing was considered but not performed or refused? (CT, X-rays, U/S, labs)? Why? @ -None What meds were considered but not given or refused? Why? @ -None Did you discuss the management of the patient with other professionals (malika merino i.e. , PA, CHIEF CUSTOMER OFFICER, lab, RT, psych nurse, executive secretary social welfare, gun numberer, teacher, first officer, foster care case manager)? Give summary @ -No Was smoking cessation discussed for >3mins.? @ -No Was critical care preformed (if so, how long)? @ -No Were there social determinants of health that impacted care today? How? (Homelessness, low income, unemployed, alcoholism, drug addiction, transportation, low edu. Level, literacy, decrease access to med. care, long term, rehab)? @ -No Was there de-escalation of care discussed even if they declined (Discuss DNR or withdrawal of care, Hospice)? DNR status @ -No What co-morbidities impacted this encounter? (DM, HTN, Smoking, COPD, CAD, Cancer, CVA, ARF, Chemo, Hep., AIDS, mental health diagnosis, sleep apnea, morbid obesity)? @ -None Was patient admitted / discharged? Hospital course, mention meds given and route, prescriptions, significant lab abnormalities, going to OR and other pertinent info. @ -Discharge. 24-year-old female presenting for nausea/vomiting/diarrhea x 3 days. Patient has not vomited in over 24 hours. Tolerating this well months of orals. Denies abdominal pain, fever. Vital signs are within acceptable limits. Patient is overall well-appearing, no acute distress. Abdomen soft and nonsurgical. Provided with IV fluids and Zofran. Lab work unremarkable. Normal white blood cell count, no lactic acidosis. Urinalysis reveals moderate blood and trace ketones likely secondary to chronic vaginal spotting after discontinuing control. Urine negative. Discussed results with patient. I do not identify emergent etiology causing symptoms today. Discussed diagnosis of viral gastroenteritis. Advised to take Zofran as prescribed. Appropriate return precautions and supportive care discussed. Case was discussed with my ED attending Dr. So. Undiagnosed new problem with uncertain prognosis? @ -No Drug Therapy requiring intensive monitoring for toxicity (Heparin, Nitro, Insulin, Cardizem)? @ -No Were any procedures done? @ -No Diagnosis/symptom? @ -Viral gastroenteritis Acute, or Chronic, or Acute on Chronic? @ -Acute Uncomplicated (without systemic symptoms) or Complicated (systemic symptoms)? @ -Complicated Side effects of treatment? @ -No Exacerbation, Progression, or Severe Exacerbation? @ -No Poses a threat to life or bodily function? How? (Chest pain, USA, DE, pneumonia, PE, COPD, DKA, ARF, appy, cholecystitis, CVA, Diverticulitis, Homicidal, Suicidal, threat to staff... and all critical care pts) @ -No - Lab Data Result diagrams: 04/21/25 16:38 04/21/25 16:38 Lab Results 04/21/25 04/21/25 04/21/25 Range/Units 16:13 16:13 16:38 WBC 8.02 (4.50-10.00) 10*3/uL RBC 4.49 (4.10-5.20) 10*6/uL Hgb 14.1 (12.0-15.0) g/dL Hct 39.5 (37.2-46.3) % MCV 88.0 (80.0-97.0) fL MCH 31.4 (27.0-32.0) pg MCHC 35.7 (32.0-37.0) g/dL Plt Count 341 (140-440) 10*3/uL MPV 10.0 (9.5-12.2) fL Immature Gran % (Auto) 0.4 % Neutrophils % 64.0 % Lymphocytes % 28.9 % Monocytes % 5.7 % Eosinophils % 0.1 % Basophils % 0.9 % Immature Gran # 0.03 (0.00-0.04) 10*3/uL Neutrophils # 5.13 (1.80-7.70) 10*3/uL Lymphocytes # 2.32 (0.90-5.00) 10*3/uL Monocytes # 0.46 (0.20-1.00) 10*3/uL Eosinophils # 0.01 L (0.04-0.35) 10*3/uL Basophils # 0.07 (0.00-0.10) 10*3/uL Sodium (137-145) mmol/L Potassium (3.5-5.1) mmol/L Chloride (98-107) mmol/L Carbon Dioxide (22-30) mmol/L Anion Gap mmol/L BUN (7-17) mg/dL Creatinine (0.52-1.04) mg/dL Est GFR (CKD-EPI)AfAm (>60 ml/min/1.73 sqM) Est GFR (CKD-EPI)NonAf (>60 ml/min/1.73 sqM) Glucose (74-99) mg/dL Plasma Lactic Acid Fadi (0.7-2.0) mmol/L Calcium (8.4-10.2) mg/dL Total Bilirubin (0.2-1.3) mg/dL AST (14-36) U/L ALT (4-34) U/L Alkaline Phosphatase (38-126) U/L Total Protein (6.3-8.2) g/dL Albumin (3.5-5.0) g/dL Urine Color Colorless Urine Appearance Cloudy H (Clear) Urine pH 6.0 (5.0-8.0) Ur Specific [place] 1.016 (1.001-1.035) Urine Protein Negative (Negative) Urine Glucose (UA) Negative (Negative) Urine Ketones Trace H (Negative) Urine Blood Moderate H (Negative) Urine Nitrite Negative (Negative) Urine Bilirubin Negative (Negative) Urine Urobilinogen <2.0 (<2.0) mg/dL Ur Leukocyte Esterase Negative (Negative) Urine RBC 4 (0-5) /hpf Urine WBC 1 (0-5) /hpf Ur Squamous Epith Cells 3 (0-4) /hpf Urine Mucus Rare H (None) /hpf Urine HCG, Qual Not Detected (Not Detectd) 04/21/25 04/21/25 Range/Units 16:38 16:38 WBC (4.50-10.00) 10*3/uL RBC (4.10-5.20) 10*6/uL Hgb (12.0-15.0) g/dL Hct (37.2-46.3) % MCV (80.0-97.0) fL MCH (27.0-32.0) pg MCHC (32.0-37.0) g/dL Plt Count (140-440) 10*3/uL MPV (9.5-12.2) fL Immature Gran % (Auto) % Neutrophils % % Lymphocytes % % Monocytes % % Eosinophils % % Basophils % % Immature Gran # (0.00-0.04) 10*3/uL Neutrophils # (1.80-7.70) 10*3/uL Lymphocytes # (0.90-5.00) 10*3/uL Monocytes # (0.20-1.00) 10*3/uL Eosinophils # (0.04-0.35) 10*3/uL Basophils # (0.00-0.10) 10*3/uL Sodium 139 (137-145) mmol/L Potassium 3.9 (3.5-5.1) mmol/L Chloride 108 H (98-107) mmol/L Carbon Dioxide 20 L (22-30) mmol/L Anion Gap 11 mmol/L BUN 4 L (7-17) mg/dL Creatinine 0.59 (0.52-1.04) mg/dL Est GFR (CKD-EPI)AfAm >90 (>60 ml/min/1.73 sqM) Est GFR (CKD-EPI)NonAf >90 (>60 ml/min/1.73 sqM) Glucose 112 H (74-99) mg/dL Plasma Lactic Acid Fadi 1.1 (0.7-2.0) mmol/L Calcium 9.4 (8.4-10.2) mg/dL Total Bilirubin 0.6 (0.2-1.3) mg/dL AST 19 (14-36) U/L ALT 19 (4-34) U/L Alkaline Phosphatase 56 (38-126) U/L Total Protein 7.2 (6.3-8.2) g/dL Albumin 4.5 (3.5-5.0) g/dL Urine Color Urine Appearance (Clear) Urine pH (5.0-8.0) Ur Specific [place] (1.001-1.035) Urine Protein (Negative) Urine Glucose (UA) (Negative) Urine Ketones (Negative) Urine Blood (Negative) Urine Nitrite (Negative) Urine Bilirubin (Negative) Urine Urobilinogen (<2.0) mg/dL Ur Leukocyte Esterase (Negative) Urine RBC (0-5) /hpf Urine WBC (0-5) /hpf Ur Squamous Epith Cells (0-4) /hpf Urine Mucus (None) /hpf Urine HCG, Qual (Not Detectd) Disposition Clinical Impression: Viral gastroenteritis Disposition: HOME SELF-CARE Condition: Stable Instructions (If sedation given, give patient instructions): Gastroenteritis (ED) Additional Instructions: Take Zofran as needed for nausea. Slowly reintroduce bland foods such as rice, applesauce, bananas, and toast. Please return to the Emergency Department if symptoms worsen or any other concerns. Is patient prescribed a controlled substance at d/c from ED?: No Referrals: Gustavo Ardon MD [Primary Care Provider] - 1-2 days Time of Disposition: 17:50
[2025-04-21 17:00] LABS: Appearance,Urine Cloudy (Clear); Bilirubin,Urine Negative (Negative); Blood,Urine Moderate (Negative); Color,Urine Colorless; Glucose,Urine (UA) Negative (Negative); Ketones,Urine Trace (Negative); Leukocyte Esterase,Urine Negative (Negative); Mucus,Urine Rare /hpf; Nitrite,Urine Negative (Negative); Protein,Urine Negative (Negative); RBC,Urine 4 /hpf (0-5); Specific Gravity,Urine 1.016 (1.001-1.035); Squamous Epithelial Cell,Urine 3 /hpf (0-4); Urobilinogen,Urine <2.0 mg/dL (<2.0); WBC,Urine 1 /hpf (0-5)
[2025-04-21 17:00] LABS: Basophils # (A) 0.07 10*3/uL (0.00-0.10); Basophils % (A) 0.9 %; Eosinophils # (A) 0.01 10*3/uL (0.04-0.35); Eosinophils % (A) 0.1 %; HCT 39.5 % (37.2-46.3); HGB 14.1 g/dL (12.0-15.0); Lymphocytes # (A) 2.32 10*3/uL (0.90-5.00); Lymphocytes % (A) 28.9 %; MCH 31.4 pg (27.0-32.0); MCHC 35.7 g/dL (32.0-37.0); Monocytes # (A) 0.46 10*3/uL (0.20-1.00); Monocytes % (A) 5.7 %; Neutrophils # (A) 5.13 10*3/uL (1.80-7.70); Platelet Count 341 10*3/uL (140-440); RBC 4.49 10*6/uL (4.10-5.20); RDW 12.5 % (11.5-14.5); WBC 8.02 10*3/uL (4.50-10.00)
[2025-04-21] MEDS: SODIUM CHLORIDE 0.9% 1,000 ML IV STA (17:08)
[2025-04-21] MEDS: ONDANSETRON 4 MG/2 ML VIAL IVP STA (17:09)
[2025-04-21 17:34] LABS: ALT 19 U/L (4-34); AST 19 U/L (14-36); African American GFR (CKD) >90 (>60 ml/min/1.73 sqM); Albumin 4.5 g/dL (3.5-5.0); Alkaline Phosphatase 56 U/L (38-126); Anion Gap 11 mmol/L; Blood Urea Nitrogen 4 mg/dL (7-17); Calcium 9.4 mg/dL (8.4-10.2); Carbon Dioxide 20 mmol/L (22-30); Chloride 108 mmol/L (98-107); Glucose 112 mg/dL (74-99); Non-African American GFR(CKD) >90 (>60 ml/min/1.73 sqM); Potassium 3.9 mmol/L (3.5-5.1); Sodium 139 mmol/L (137-145); Total Bilirubin 0.6 mg/dL (0.2-1.3); Total Protein 7.2 g/dL (6.3-8.2)
[2025-04-21 18:21] VITALS: BP 134/86; PULSE 71; TEMP 98.4
== END 2025-04-21 19:57 | disposition home or self-care (01) ==
LOC: EC 16:04
DX: A08.4 Viral intestinal infection, unspecified (principal); K52.9 Noninfective gastroenteritis and colitis, unspecified; F17.290 Nicotine dependence, other tobacco product, uncomplicated
CPT/HCPCS: 99284; 96374; 96361; 36415; 80053; 83605; 85025; 81001; 81025; J2405